=== PATIENT | male | born 1985 | race Caucasian/White ===

== ENCOUNTER 2024-07-15 12:47 | Emergency (ER) | payer SELFPAY ==
[~2024-07-15] VITALS: Ht 172.7 cm; Wt 78.0 kg
[2024-07-15 13:00] VITALS: O2SAT 99
[2024-07-15 13:43] LABS: BASOPHILS % 0.5 % (0.0-2.0); EOSINOPHILS % 2.4 % (0.0-5.0); HEMATOCRIT. 42.8 % (42.0-52.0); HEMOGLOBIN. 14.5 g/dL (14.0-18.0); LYMPHOCYTES % 25.8 % (20.0-50.0); MEAN CORPUSCULAR HEMOGLOBIN 27.3 pg (28.0-32.0); MEAN CORPUSCULAR HGB CONC 33.9 g/dL (31.0-37.0); MEAN CORPUSCULAR VOLUME 80.4 fL (80.0-94.0); MEAN PLATELET VOLUME 8.3 fl (7.4-10.4); MONOCYTES % 7.5 % (2.0-8.0); NEUTROPHILS % 63.8 % (40.0-76.0); PLATELET 205 x1000/uL (130-400); RED BLOOD CELL COUNT 5.32 mill/uL (4.7-6.1); RED CELL DISTRIBUTION WIDTH 13.7 % (11.6-14.6); WHITE BLOOD COUNT 8.8 x1000/uL (4.5-11.0)
[2024-07-15 13:53] LABS: CHLORIDE 105 mEq/L (98-107); POTASSIUM 4.2 mEq/L (3.5-5.1); SODIUM 136 mEq/L (136-145)
[2024-07-15 13:54] LABS: CARBON DIOXIDE 30 mEq/L (21-32)
[2024-07-15 13:55] LABS: CALCIUM 9.3 mg/dL (8.7-10.4)
[2024-07-15 13:59] LABS: GLUCOSE 95 mg/dL (70-105); UREA NITROGEN BLOOD 15 mg/dL (9-23)
[2024-07-15 14:09] LABS: TROPONIN I HIGH SENSITIVITY < 4 ng/L (3.0-53)
[2024-07-15 15:20] VITALS: BP 145/90; PULSE 56; RESP 18; TEMP 37.05852; O2SAT 100
== END 2024-07-15 15:30 ==
LOC: ER 12:47
DX: R55 Syncope and collapse (principal); R42 Dizziness and giddiness; M25.512 Pain in left shoulder
CPT/HCPCS: 36415; 80048; 84484; 85025; 93005; 99284